=== PATIENT | male | born 1945 | race Caucasian/White ===

== ENCOUNTER → 2018-07-04 | Outpatient (CLI) | payer MEDICARE ==
[~2018-07-04] MED LIST: HYDACE5 PO; IBUP600 PO
[2018-07-04 17:17] LABS: Source, Urine Voided
[2018-07-04 18:44] LABS: Appearance, Urine Cloudy (Clear); Bilirubin, Urine Neg (Neg); Blood, Urine 5+ (Neg); Color, Urine Amber (P-Yellow); Glucose Qualitative, Urine Neg (Neg); Ketones, Urine 1+ (Neg); Leukocyte Esterase, Urine 2+ (Neg); Nitrite, Urine Pos (Neg); Protein, Urine 3+ (Neg); Urobilinogen, Urine NORM (Normal)
[2018-07-04 19:37] LABS: Red Blood Cells, Urine TNTC /hpf (0-2)
[2018-07-04 19:38] LABS: Bacteria Many /hpf; Squamous Epithelial Cells Not Seen /hpf (Few); Yeast/Fungi Urine Mod /hpf
== END | disposition home or self-care (01) ==
LOC: LAB 17:16 → LAB SHORT 17:16
PROVIDERS: Internal Medicine
DX: R82.90 Unspecified abnormal findings in urine (principal); R31.9 Hematuria, unspecified
CPT/HCPCS: 81001; 87086

== ENCOUNTER 2019-06-12 14:34 | Emergency (ER) | payer MEDICARE ==
[~2019-06-12] VITALS: Ht 177.8 cm; Wt 117.9 kg
[~2019-06-12 14:34] MED LIST changes: +HYDR1TAB94 PO; +Pyridium200 MG PO
[2019-06-12] MEDS ORDERED: ALLO300 PO (16:29)
[2019-06-12] MEDS ORDERED: CEPH500 PO (16:59)
[2019-06-12] MEDS ORDERED: Norco 5-325 Ta1 EACH PO (16:59)
== END 2019-06-12 18:20 | disposition home or self-care (01) ==
LOC: ER 14:34
DX: S62.521B Displaced fracture of distal phalanx of right thumb, initial encounter for open fracture (principal); S61.011A Laceration without foreign body of right thumb without damage to nail, initial encounter; M10.9 Gout, unspecified; W45.8XXA Other foreign body or object entering through skin, initial encounter
CPT/HCPCS: 12002; 73140; 90471; 90714; 99283-25

== ENCOUNTER → 2020-03-04 | Outpatient (CLI) | payer MEDICARE ==
[~2020-03-04] MED LIST changes: +ALLO300 PO; +CEPH500 PO; +Norco 5-325 Ta1 EACH PO
[2020-03-04 16:47] LABS: Hematocrit 27.7 % (37.0-53.0); Hemoglobin 8.5 g/dL (13.5-17.5); Mean Corpuscular HGB 29.7 pg (26.0-34.0); Mean Corpuscular HGB Conc 30.7 g/dL (31.5-36.5); Mean Corpuscular Volume 97 fL (80-100); Mean Platelet Volume 11.1 fL (9.1-12.4); Platelet Count 234 K/mm3 (150-400); RDW Coefficient Variation 15.8 % (11.7-14.2); RDW Standard Deviation 56.2 fL (35.1-46.3); Red Blood Cell Count 2.86 M/mm3 (4.30-5.90)
[2020-03-04 20:18] LABS: Bun/Creatinine Ratio 30.1 (12.0-20.0); Calcium, Blood 9.5 mg/dL (8.5-10.1); Creatinine, Blood 1.66 mg/dL (0.60-1.20); Potassium, Blood 4.4 mmol/L (3.5-5.5)
== END | disposition home or self-care (01) ==
LOC: LAB SHORT 15:44 → LAB HH 15:44
PROVIDERS: Urology
DX: C67.2 Malignant neoplasm of lateral wall of bladder (principal); E86.0 Dehydration; K63.2 Fistula of intestine
CPT/HCPCS: 80048; 85027

== ENCOUNTER 2020-03-22 13:08 | Inpatient (IN) | payer MEDICARE ==
[~2020-03-22] VITALS: Ht 177.8 cm; Wt 109.7 kg
[2020-03-22 14:33] LABS: BASOPHILS ABSOLUTE AUTO 0.02 K/mm3 (0.00-0.23); BASOPHILS PERCENT AUTO 0 % (0-2); EOSINOPHILS PERCENT AUTO 0 % (0-6); Hematocrit 28.2 % (37.0-53.0); Hemoglobin 8.7 g/dL (13.5-17.5); IMMATURE GRAN ABSOLUTE AUTO 0.09 K/mm3 (0.00-0.10); IMMATURE GRAN PERCENT AUTO 1 % (0-1); LYMPHOCYTES ABSOLUTE AUTO 0.76 K/mm3 (0.84-5.20); LYMPHOCYTES PERCENT AUTO 5 % (21-46); MONOCYTES ABSOLUTE AUTO 1.01 K/mm3 (0.16-1.47); MONOCYTES PERCENT AUTO 7 % (4-13); Mean Corpuscular HGB 28.8 pg (26.0-34.0); Mean Corpuscular HGB Conc 30.9 g/dL (31.5-36.5); Mean Corpuscular Volume 93 fL (80-100); Mean Platelet Volume 10.7 fL (9.1-12.4); NEUTROPHILS ABSOLUTE AUTO 12.74 K/mm3 (1.96-9.15); NEUTROPHILS PERCENT AUTO 87 % (41-73); Platelet Count 177 K/mm3 (150-400); RDW Coefficient Variation 16.5 % (11.7-14.2); RDW Standard Deviation 56.4 fL (35.1-46.3); Red Blood Cell Count 3.02 M/mm3 (4.30-5.90); White Blood Cell Count 14.62 K/mm3 (4.00-11.30)
[2020-03-22 14:49] LABS: Albumin, Blood 2.5 g/dL (3.4-5.0); Albumin/Globulin Ratio 0.4 (0.8-1.8); Bilirubin, Total 0.4 mg/dL (0.1-1.0); Creatinine, Blood 2.85 mg/dL (0.60-1.20); Globulin, Blood 6.1 g/dL (2.2-4.0); Potassium, Blood 4.7 mmol/L (3.5-5.5); Total Protein, Blood 8.6 g/dL (6.4-8.2)
[2020-03-22] MEDS ORDERED: ENOX100I SC (15:28)
[2020-03-22] MEDS ORDERED: Zofran4 MG PO (15:29)
[2020-03-22 16:52] LABS: Source, Urine Clean Catch
[2020-03-22 16:56] LABS: Appearance, Urine Hazy (Clear); Bilirubin, Urine Neg (Neg); Blood, Urine 4+ (Neg); Color, Urine Yellow (P-Yellow); Glucose Qualitative, Urine Neg (Neg); Ketones, Urine Neg (Neg); Leukocyte Esterase, Urine 3+ (Neg); Nitrite, Urine Neg (Neg); Protein, Urine 3+ (Neg); Urobilinogen, Urine NORM (Normal); pH, Urine 6.5 (5.0-8.0)
[2020-03-22 17:02] LABS: Bacteria Many /hpf; Squamous Epithelial Cells Not Seen /hpf (Few); White Blood Cells, Urine TNTC /hpf (0-5)
--- NOTE | 2020-03-22 18:46 | NUR ---
CALLED ED AND RECIEVED REPORT FROM ED RN MICHEL. TELEPHONE REPORT COMPLETED JUST PRIOR TO SHIFT CHANGE. WILL PASS REPORT ON TO NIGHT RN AT SHIFT CHANGE.
--- NOTE | 2020-03-23 04:50 | NUR ---
SHIFT SUMMARY: PT A NEW ADMIT FROM ER FOR SEPSIS. PT C/O SOB, NAUSEA AND COUGH X3 DAYS. PT REPORTS A RECENT DISCHARGE FROM [facility] FOR UROSTOMY PLACEMENT. MIDLINE SURGICAL SITE DRY AND WNL. UROSTOMY DRAINING YELLOW CLOUDY URINE WITH VISIBLE SEDIMENT IN TUBING. LR BOLUS X2 COMPLETE. PT NOW RECEIVING NS AT 125ML/HR PER ORDERS. ARMIDA PO AND DENIES N/V. LUNG SOUNDS DIMINISHED THROUGHOUT. O2 STABLE ON RA. OCCASIONAL DRY, UNPRODUCTIVE COUGH. FEBRILE THIS SHIFT WITH MAX TEMP BEING 101.1. PT GIVEN FAN AND ICE PACKS. BLANKET REMOVED. MOST RECENT TEMP 99.7. WILL CTM AND INFUSE FLUIDS PER ORDERS.
[2020-03-23 05:23] LABS: BASOPHILS ABSOLUTE AUTO 0.02 K/mm3 (0.00-0.23); BASOPHILS PERCENT AUTO 0 % (0-2); EOSINOPHILS PERCENT AUTO 0 % (0-6); Hematocrit 25.3 % (37.0-53.0); Hemoglobin 7.9 g/dL (13.5-17.5); IMMATURE GRAN ABSOLUTE AUTO 0.06 K/mm3 (0.00-0.10); IMMATURE GRAN PERCENT AUTO 0 % (0-1); LYMPHOCYTES ABSOLUTE AUTO 0.74 K/mm3 (0.84-5.20); LYMPHOCYTES PERCENT AUTO 5 % (21-46); MONOCYTES ABSOLUTE AUTO 0.84 K/mm3 (0.16-1.47); MONOCYTES PERCENT AUTO 6 % (4-13); Mean Corpuscular HGB 28.6 pg (26.0-34.0); Mean Corpuscular HGB Conc 31.2 g/dL (31.5-36.5); Mean Corpuscular Volume 92 fL (80-100); Mean Platelet Volume 11.2 fL (9.1-12.4); NEUTROPHILS ABSOLUTE AUTO 11.97 K/mm3 (1.96-9.15); NEUTROPHILS PERCENT AUTO 88 % (41-73); Platelet Count 150 K/mm3 (150-400); RDW Coefficient Variation 16.6 % (11.7-14.2); RDW Standard Deviation 55.9 fL (35.1-46.3); Red Blood Cell Count 2.76 M/mm3 (4.30-5.90); White Blood Cell Count 13.63 K/mm3 (4.00-11.30)
[2020-03-23 05:51] LABS: Albumin, Blood 2.2 g/dL (3.4-5.0); Albumin/Globulin Ratio 0.4 (0.8-1.8); Bilirubin, Total 0.4 mg/dL (0.1-1.0); Bun/Creatinine Ratio 14.1 (12.0-20.0); Calcium, Blood 8.3 mg/dL (8.5-10.1); Creatinine, Blood 3.05 mg/dL (0.60-1.20); Globulin, Blood 5.2 g/dL (2.2-4.0); Potassium, Blood 4.7 mmol/L (3.5-5.5); Total Protein, Blood 7.4 g/dL (6.4-8.2)
--- NOTE | 2020-03-23 13:46 | NUR ---
SHIFT SUMMARY PT RESTING QUIETLY AT START OF SHIFT, IVF'S INFUSING. PT ADMITTED FOR SEVERE SEPSIS R/T UTI/UROSTOMY. MIDLINE ABD INCISION WNL'S. PT WITH NAUSEA, SOB, AND COUGH X 3 DAYS. SR ON TELE, PER MX TECH. SP TX IN TO EVAL PT; DIET CHANGED TO SOFT. PT TOLERATED WELL. MEDS WHOLE W/H2O. DR WORKMAN IN TO SEE PT. DR WORKMAN CALLED PT'S UROLOGIST IN [place] TO DISCUSS PLAN OF CARE. PT CURRENTLY DOWN TO [place] FOR LUNG PERFUSION TEST. 2P MAX ASSIST TO TX TO [facility]. PT VERY WEAK AND UNSTEADY. NEEDING TO GET UP AND MOVE AROUND MORE. UROSTOMY TUBING DRAINING CLOUDY YELLOW URINE WITH HEAVY SEDIMENT. NO C/O PAIN. GOWN AND LINEN CHANGED. PT'S SISTER HERE TO VISIT TODAY. TO COME IN TOMORROW. CALL LT IN REACH.
--- NOTE | 2020-03-23 19:05 | NUR ---
ASSUMED CARE RECEIVED REPORT FROM SAMMIE VILLALPANDO. ASSUMED CARE OF PT. RESTING COMFORTABLY AT THIS TIME. NO S/S ACUTE DISTRESS NOTED, RESPS EVEN AND UNLABORED. PT DENIES NEEDS AT THIS TIME. CALL LIGHT AND POSSESSIONS IN REACH, BED IN LOW POSITION. WILL CONTINUE TO MONITOR.
--- NOTE | 2020-03-24 06:13 | NUR ---
SHIFT SUMMARY PT ASLEEP AT THIS TIME, NO S/S ACUTE DISTRESS NOTED. SLEPT T/O NIGHT. WAS MONITORED EVERY 1-2 HOURS WITH NEEDS MET. VS REVIEWED, PT SPIKED A TEMP OF 100.1 EARLY THIS AM, AFEBRILE AT THIS TIME. NO OTHER ACUTE EVENTS OR CHANGES IN CONDITION NOTED. DENIES NEEDS AT THIS TIME. CALL LIGHT, POSSESSIONS IN REACH, BED IN LOW POSITION. WILL CONTINUE TO MONITOR UNTIL DAY RN ASSUMES CARE.
[2020-03-24 10:25] LABS: BASOPHILS ABSOLUTE AUTO 0.01 K/mm3 (0.00-0.23); BASOPHILS PERCENT AUTO 0 % (0-2); EOSINOPHILS ABSOLUTE AUTO 0.06 K/mm3 (0.00-0.68); EOSINOPHILS PERCENT AUTO 1 % (0-6); Hematocrit 24.1 % (37.0-53.0); Hemoglobin 7.4 g/dL (13.5-17.5); IMMATURE GRAN ABSOLUTE AUTO 0.06 K/mm3 (0.00-0.10); IMMATURE GRAN PERCENT AUTO 1 % (0-1); LYMPHOCYTES ABSOLUTE AUTO 0.58 K/mm3 (0.84-5.20); LYMPHOCYTES PERCENT AUTO 6 % (21-46); MONOCYTES ABSOLUTE AUTO 0.61 K/mm3 (0.16-1.47); MONOCYTES PERCENT AUTO 6 % (4-13); Mean Corpuscular HGB 28.5 pg (26.0-34.0); Mean Corpuscular HGB Conc 30.7 g/dL (31.5-36.5); Mean Corpuscular Volume 93 fL (80-100); Mean Platelet Volume 10.8 fL (9.1-12.4); NEUTROPHILS ABSOLUTE AUTO 8.79 K/mm3 (1.96-9.15); NEUTROPHILS PERCENT AUTO 87 % (41-73); Platelet Count 139 K/mm3 (150-400); RDW Coefficient Variation 16.5 % (11.7-14.2); RDW Standard Deviation 56.3 fL (35.1-46.3); White Blood Cell Count 10.11 K/mm3 (4.00-11.30)
[2020-03-24 10:56] LABS: Albumin, Blood 1.8 g/dL (3.4-5.0); Albumin/Globulin Ratio 0.3 (0.8-1.8); Bilirubin, Total 0.2 mg/dL (0.1-1.0); Bun/Creatinine Ratio 12.6 (12.0-20.0); Calcium, Blood 8.1 mg/dL (8.5-10.1); Creatinine, Blood 3.65 mg/dL (0.60-1.20); Globulin, Blood 5.2 g/dL (2.2-4.0); Potassium, Blood 4.3 mmol/L (3.5-5.5)
--- NOTE | 2020-03-24 12:23 | NUR ---
PT IS A/O X4, PLEASANT/COOPERATIVE. STATE NO PAIN/DISCOMFORT. STATE WEAKNESS. DR WORKMAN IN TO SEE HIM THIS AM, ORDER LABS & PT/OT. CODE OFFICIAL IN FOR EVAL/TX, [facility] w FWW. DR WORKMAN REVIEW RESULTS OF LABS, CALLED PT'S UROLOGIST @ [facility]. PT WILL TRANSFER TO [facility] THIS AFTERNOON FOR UROLOGY PROCEDURE. UROSTOMY IS PATENT @ THIS TIME, TASH CLOUDY YELLOW URINE, PT BEING TREATED FOR UTI w IV ANTIBX. WBC 10.1, HE IS AFEBRILE. PT NOTIFY HIS OF PENDING TRANSFER, SHE BRING PERSONAL ITEMS TO HOSP, QUESTIONS ANSWERED.
--- NOTE | 2020-03-24 15:39 | NUR ---
DR WORKMAN PLACE ORDERS FOR [place] TRANSFER TO [facility]. REPORT CALLED TO [facility] SAMMIE BABIN, GOING TO RM [id number]. [employer] WILL ARRANGE TRANSPORTATION. PT & UPDATED, STATE SATISFACTION/APPRECIATION.
== END 2020-03-24 15:58 | disposition short-term general hospital (02) | DRG 698 ==
LOC: ER 13:08 → MEDS 18:06
PROVIDERS: Emergency Medicine; Internal Medicine; ADMIT Internal Medicine
DX: T83.518A Infection and inflammatory reaction due to other urinary catheter, initial encounter (principal); A41.9 Sepsis, unspecified organism; R65.20 Severe sepsis without septic shock; N39.0 Urinary tract infection, site not specified; N17.9 Acute kidney failure, unspecified; N13.30 Unspecified hydronephrosis; I82.409 Acute embolism and thrombosis of unspecified deep veins of unspecified lower extremity; Z66 Do not resuscitate; N18.30 Chronic kidney disease, stage 3 unspecified; M10.9 Gout, unspecified; F17.220 Nicotine dependence, chewing tobacco, uncomplicated; Z85.51 Personal history of malignant neoplasm of bladder
CPT/HCPCS: 36415; 71045; 74176; 78580; 80053; 81001; 83605; 83880; 85025; 87040; 87086; 87106; 92610; 93005; 93010; 96365; 97165; 97535; 99285-25; A9270; A9540; C9113; J0692; J0696; J1650; J2405; J7030; J7120; U0003

== ENCOUNTER → 2020-04-05 | Outpatient (CLI) | payer MEDICARE ==
[~2020-04-05] MED LIST changes: +ENOX100I SC; +Zofran4 MG PO
[2020-04-05 15:02] LABS: Bun/Creatinine Ratio 17.6 (12.0-20.0); Calcium, Blood 8.9 mg/dL (8.5-10.1); Creatinine, Blood 2.16 mg/dL (0.60-1.20); Potassium, Blood 4.9 mmol/L (3.5-5.5)
== END | disposition home or self-care (01) ==
LOC: LAB 14:37 → LAB SHORT 14:37
PROVIDERS: Physician Assistant
DX: Z48.3 Aftercare following surgery for neoplasm (principal); C67.2 Malignant neoplasm of lateral wall of bladder; I10 Essential (primary) hypertension; M10.9 Gout, unspecified
CPT/HCPCS: 80048

== ENCOUNTER → 2023-06-07 | Outpatient (CLI) | payer MEDICARE | LOC: LAB 07:24 → LAB SHORT 07:24 | DX: N39.0 Urinary tract infection, site not specified (principal) | CPT/HCPCS: 87077; 87086; 87186 ==

== ENCOUNTER 2024-03-31 15:08 | Emergency (ER) | payer MEDICARE ==
[~2024-03-31] VITALS: Ht 177.8 cm; Wt 117.9 kg
[2024-03-31] MEDS ORDERED: Tranexamic Acid 100 ML IV ONE (15:40)
[2024-03-31 16:02] LABS: BASOPHILS ABSOLUTE AUTO 0.06 K/mm3 (0.00-0.23); BASOPHILS PERCENT AUTO 1 % (0-2); EOSINOPHILS ABSOLUTE AUTO 0.09 K/mm3 (0.00-0.68); EOSINOPHILS PERCENT AUTO 1 % (0-6); Hematocrit 39.5 % (37.0-53.0); Hemoglobin 13.4 g/dL (13.5-17.5); IMMATURE GRAN ABSOLUTE AUTO 0.05 K/mm3 (0.00-0.10); IMMATURE GRAN PERCENT AUTO 0 % (0-1); LYMPHOCYTES ABSOLUTE AUTO 2.24 K/mm3 (0.84-5.20); LYMPHOCYTES PERCENT AUTO 18 % (21-46); MONOCYTES ABSOLUTE AUTO 0.58 K/mm3 (0.16-1.47); MONOCYTES PERCENT AUTO 5 % (4-13); Mean Corpuscular HGB Conc 33.9 g/dL (31.5-36.5); Mean Corpuscular Volume 94 fL (80-100); Mean Platelet Volume 10.8 fL (9.1-12.4); NEUTROPHILS ABSOLUTE AUTO 9.69 K/mm3 (1.96-9.15); NEUTROPHILS PERCENT AUTO 76 % (41-73); Platelet Count 134 K/mm3 (150-400); RDW Coefficient Variation 14.3 % (11.7-14.2); RDW Standard Deviation 49.1 fL (35.1-46.3); Red Blood Cell Count 4.19 M/mm3 (4.30-5.90); White Blood Cell Count 12.71 K/mm3 (4.00-11.30)
[2024-03-31 16:22] LABS: Albumin, Blood 3.3 g/dL (3.4-5.0); Albumin/Globulin Ratio 0.8 (0.8-1.8); Bilirubin, Total 0.3 mg/dL (0.1-1.0); Bun/Creatinine Ratio 18.5 (12.0-20.0); Calcium, Blood 9.4 mg/dL (8.5-10.1); Globulin, Blood 4.1 g/dL (2.2-4.0); Potassium, Blood 3.8 mmol/L (3.5-5.5); Total Protein, Blood 7.4 g/dL (6.4-8.2)
[2024-03-31 16:45] VITALS: BP 152/83
== END 2024-03-31 17:23 | disposition home or self-care (01) ==
LOC: ER 15:08
PROVIDERS: Emergency Medicine
DX: K94.11 Enterostomy hemorrhage (principal); Y84.8 Other medical procedures as the cause of abnormal reaction of the patient, or of later complication, without mention of misadventure at the time of the procedure; Z79.899 Other long term (current) drug therapy
CPT/HCPCS: 80053; 85025; 96374; 99284-25

== ENCOUNTER 2024-04-02 11:11 | Emergency (ER) | payer MEDICARE ==
[~2024-04-02] VITALS: Ht 177.8 cm; Wt 117.9 kg
[2024-04-02 11:52] LABS: BASOPHILS ABSOLUTE AUTO 0.06 K/mm3 (0.00-0.23); BASOPHILS PERCENT AUTO 1 % (0-2); EOSINOPHILS ABSOLUTE AUTO 0.06 K/mm3 (0.00-0.68); EOSINOPHILS PERCENT AUTO 1 % (0-6); Hematocrit 34.3 % (37.0-53.0); Hemoglobin 11.8 g/dL (13.5-17.5); IMMATURE GRAN ABSOLUTE AUTO 0.06 K/mm3 (0.00-0.10); IMMATURE GRAN PERCENT AUTO 1 % (0-1); LYMPHOCYTES ABSOLUTE AUTO 1.75 K/mm3 (0.84-5.20); LYMPHOCYTES PERCENT AUTO 15 % (21-46); MONOCYTES ABSOLUTE AUTO 0.48 K/mm3 (0.16-1.47); MONOCYTES PERCENT AUTO 4 % (4-13); Mean Corpuscular HGB 32.2 pg (26.0-34.0); Mean Corpuscular HGB Conc 34.4 g/dL (31.5-36.5); Mean Corpuscular Volume 94 fL (80-100); Mean Platelet Volume 10.8 fL (9.1-12.4); NEUTROPHILS ABSOLUTE AUTO 8.95 K/mm3 (1.96-9.15); NEUTROPHILS PERCENT AUTO 79 % (41-73); Platelet Count 132 K/mm3 (150-400); RDW Coefficient Variation 14.5 % (11.7-14.2); RDW Standard Deviation 49.7 fL (35.1-46.3); Red Blood Cell Count 3.67 M/mm3 (4.30-5.90); White Blood Cell Count 11.36 K/mm3 (4.00-11.30)
[2024-04-02 12:15] LABS: Albumin, Blood 3.3 g/dL (3.4-5.0); Albumin/Globulin Ratio 0.9 (0.8-1.8); Bilirubin, Total 0.3 mg/dL (0.1-1.0); Bun/Creatinine Ratio 17.8 (12.0-20.0); Calcium, Blood 9.2 mg/dL (8.5-10.1); Creatinine, Blood 2.25 mg/dL (0.60-1.20); Globulin, Blood 3.7 g/dL (2.2-4.0); Potassium, Blood 4.2 mmol/L (3.5-5.5)
[2024-04-02 15:06] VITALS: BP 169/77
== END 2024-04-02 16:19 | disposition home or self-care (01) ==
LOC: ER 11:11
PROVIDERS: Physician Assistant
DX: T83.83XA Hemorrhage due to genitourinary prosthetic devices, implants and grafts, initial encounter (principal); N99.522 Malfunction of incontinent external stoma of urinary tract; Z79.899 Other long term (current) drug therapy
CPT/HCPCS: 80053; 85025; 99283

== ENCOUNTER 2024-09-23 06:09 | Day surgery (SDC) | payer MEDICARE ==
[~2024-09-23] VITALS: Ht 177.8 cm; Wt 123.3 kg
[~2024-09-23 06:09] MED LIST changes: +Balanced Salt Epinephrine Irrigation Solution 500 mL IR SCH; +Diazepam 5 MG Tab PO PRN; +Diazepam 5 MG Tab PO SCH; +Lidocaine HCl/Pf 1% 5 ML VIAL XX SCH; +Moxifloxacin HCL 0.5 MG/0.1 ML 0.4MLSYR RIGHTEYE SCH; +Ondansetron 4 MG SoluTab MM PRN; +PHENYLEPHRINE\\TROPICAMIDE\\TETRACAINE OPHTHALMIC DILATING SOLN RIGHTEYE PRN; +Povidone-Iodine 450 DROP/30 ML Solution ONE; +Povidone-Iodine 450 DROP/30 ML Solution RIGHTEYE SCH; +Tetracaine HCl/Pf 0.5% Opth Soln 4 ml ONE
[2024-09-23] MEDS ORDERED: Diazepam 10 MG Tab ONE (06:11)
[2024-09-23] MEDS ORDERED: ALLOPURINOL100 M1 PO (06:32)
[2024-09-23] MEDS ORDERED: Lidocaine HCl/Pf 1% 5 ML VIAL ONE (06:41)
--- NOTE | 2024-09-23 07:10 | NUR ---
09/23/24 0710 ARIANE RODRÍGUEZ PT O2 DROPPED 90%-92% RA NC PLACED O2 2L PER DR ORDERS. O2 INCREASED TO 95-97%
--- NOTE | 2024-09-23 07:37 | NUR ---
09/23/24 0737 Abby Peterson AFTER DISCUSSION WITH ANESTHESIA, DR. PARKER, AND CHARGE NURSES IT WAS DECIDED TO PROCEED WITH TODAY'S PROCEDURE AFTER THE PATIENT HAD ORANGE JUICE AT 0400 AND CHEWING TABACCO AT 0500.
[2024-09-23 08:14] VITALS: BP 137/77
--- NOTE | 2024-09-23 08:16 | NUR ---
09/23/[address] AT BEDSIDE
== END 2024-09-23 08:28 | disposition home or self-care (01) ==
LOC: ORSCSDS 06:09
PROVIDERS: Student in an Organized Health Care Education/Training Program
PROC: 08RJ3JZ Replacement of Right Lens with Synthetic Substitute, Percutaneous Approach (ICD-10-PCS; principal; 2024-09-23 07:30)
DX: H25.813 Combined forms of age-related cataract, bilateral (principal); Z85.51 Personal history of malignant neoplasm of bladder; I10 Essential (primary) hypertension; Z79.899 Other long term (current) drug therapy
CPT/HCPCS: A9270; J2003; V2632

== ENCOUNTER 2024-09-30 07:02 | Day surgery (SDC) | payer MEDICARE ==
[~2024-09-30] VITALS: Ht 177.8 cm; Wt 122.7 kg
[~2024-09-30 07:02] MED LIST changes: +ALLOPURINOL100 M1 PO; +Moxifloxacin HCL 0.5 MG/0.1 ML 0.4MLSYR LEFTEYE SCH; -Moxifloxacin HCL 0.5 MG/0.1 ML 0.4MLSYR RIGHTEYE SCH; +PHENYLEPHRINE\\TROPICAMIDE\\TETRACAINE OPHTHALMIC DILATING SOLN LEFTEYE PRN; -PHENYLEPHRINE\\TROPICAMIDE\\TETRACAINE OPHTHALMIC DILATING SOLN RIGHTEYE PRN; +Povidone-Iodine 450 DROP/30 ML Solution LEFTEYE SCH; -Povidone-Iodine 450 DROP/30 ML Solution RIGHTEYE SCH
[2024-09-30] MEDS ORDERED: Diazepam 10 MG Tab ONE (07:32)
--- NOTE | 2024-09-30 07:43 | NUR ---
09/30/24 0743 Ángela Blevins CALL LIGHT WITHIN REACH. TETRACAINE IN LEFT EYE AT 0738 AND PLEDGETT IN AT 0739. PT ON CONTINOUS PULSE OXIMETER.
--- NOTE | 2024-09-30 08:18 | NUR ---
09/30/24 0818 Sara Hernandez VITALS AT 0817 BP:131/66 P:78 O2:97% 10 LITERS OF BLOW BY OXYGEN
[2024-09-30 08:52] VITALS: BP 139/79
== END 2024-09-30 08:48 | disposition home or self-care (01) ==
LOC: ORSCSDS 07:02
PROVIDERS: Student in an Organized Health Care Education/Training Program
PROC: 08RK3JZ Replacement of Left Lens with Synthetic Substitute, Percutaneous Approach (ICD-10-PCS; principal; 2024-09-30 08:30)
DX: H25.12 Age-related nuclear cataract, left eye (principal); Z96.1 Presence of intraocular lens; I10 Essential (primary) hypertension; Z79.899 Other long term (current) drug therapy; Z85.51 Personal history of malignant neoplasm of bladder
CPT/HCPCS: A9270; V2632

== ENCOUNTER 2024-10-04 03:51 | Emergency (ER) | payer MEDICARE ==
[~2024-10-04] VITALS: Ht 188 cm; Wt 121.6 kg
[~2024-10-04 03:51] MED LIST changes: -Balanced Salt Epinephrine Irrigation Solution 500 mL IR SCH; -Diazepam 5 MG Tab PO PRN; -Diazepam 5 MG Tab PO SCH; -Lidocaine HCl/Pf 1% 5 ML VIAL XX SCH; -Moxifloxacin HCL 0.5 MG/0.1 ML 0.4MLSYR LEFTEYE SCH; -Ondansetron 4 MG SoluTab MM PRN; -PHENYLEPHRINE\\TROPICAMIDE\\TETRACAINE OPHTHALMIC DILATING SOLN LEFTEYE PRN; -Povidone-Iodine 450 DROP/30 ML Solution LEFTEYE SCH; -Povidone-Iodine 450 DROP/30 ML Solution ONE; -Tetracaine HCl/Pf 0.5% Opth Soln 4 ml ONE
[2024-10-04 04:42] LABS: Albumin, Blood 3.3 g/dL (3.4-5.0); Albumin/Globulin Ratio 0.8 (0.8-1.8); Bilirubin, Total 0.3 mg/dL (0.1-1.0); Bun/Creatinine Ratio 17.4 (12.0-20.0); Calcium, Blood 8.6 mg/dL (8.5-10.1); Creatinine, Blood 1.95 mg/dL (0.60-1.20); Globulin, Blood 4.3 g/dL (2.2-4.0); Potassium, Blood 4.2 mmol/L (3.5-5.5); Total Protein, Blood 7.6 g/dL (6.4-8.2)
[2024-10-04 04:50] LABS: BASOPHILS ABSOLUTE AUTO 0.04 K/mm3 (0.00-0.23); BASOPHILS PERCENT AUTO 0 % (0-2); EOSINOPHILS ABSOLUTE AUTO 0.04 K/mm3 (0.00-0.68); EOSINOPHILS PERCENT AUTO 0 % (0-6); Hematocrit 39.6 % (37.0-53.0); Hemoglobin 13.1 g/dL (13.5-17.5); IMMATURE GRAN ABSOLUTE AUTO 0.07 K/mm3 (0.00-0.10); IMMATURE GRAN PERCENT AUTO 0 % (0-1); LYMPHOCYTES ABSOLUTE AUTO 0.89 K/mm3 (0.84-5.20); LYMPHOCYTES PERCENT AUTO 6 % (21-46); MONOCYTES ABSOLUTE AUTO 0.72 K/mm3 (0.16-1.47); MONOCYTES PERCENT AUTO 5 % (4-13); Mean Corpuscular HGB 30.8 pg (26.0-34.0); Mean Corpuscular HGB Conc 33.1 g/dL (31.5-36.5); Mean Corpuscular Volume 93 fL (80-100); NEUTROPHILS ABSOLUTE AUTO 14.04 K/mm3 (1.96-9.15); NEUTROPHILS PERCENT AUTO 89 % (41-73); RDW Coefficient Variation 15.7 % (11.7-14.2); Red Blood Cell Count 4.25 M/mm3 (4.30-5.90)
[2024-10-04 04:51] LABS: Platelet Count 114 K/mm3 (150-400)
[2024-10-04 05:46] VITALS: BP 158/72
[2024-10-04] MEDS ORDERED: CEFD300 PO (07:39)
== END 2024-10-04 05:50 | disposition home or self-care (01) ==
LOC: ER 03:51
PROVIDERS: Emergency Medicine
DX: R07.2 Precordial pain (principal); D72.829 Elevated white blood cell count, unspecified; N18.30 Chronic kidney disease, stage 3 unspecified; R07.89 Other chest pain; N39.0 Urinary tract infection, site not specified; Z79.899 Other long term (current) drug therapy; Z91.018 Allergy to other foods
CPT/HCPCS: 71045; 80053; 81001; 83605; 84484; 85025; 87086; 93005; 93010; 96372; 99283; 99285-25; J0696

== ENCOUNTER 2024-10-04 06:18 | Emergency (ER) | payer MEDICARE ==
[~2024-10-04] VITALS: Ht 177.8 cm; Wt 117.9 kg
[2024-10-04 06:40] LABS: Source, Urine Urostomy Bag
[2024-10-04 06:58] LABS: Appearance, Urine Hazy (Clear); Bilirubin, Urine Neg (Neg); Blood, Urine 5+ (Neg); Color, Urine Yellow (P-Yellow); Glucose Qualitative, Urine Neg (Neg); Ketones, Urine Neg (Neg); Leukocyte Esterase, Urine 3+ (Neg); Nitrite, Urine Neg (Neg); Protein, Urine 3+ (Neg); Specific Gravity, Urine 1.015 (1.003-1.022); Urobilinogen, Urine NORM (Normal)
[2024-10-04 07:10] LABS: Bacteria Mod /hpf; Red Blood Cells, Urine TNTC /hpf (0-2); Squamous Epithelial Cells Few /hpf (Few); White Blood Cells, Urine TNTC /hpf (0-5)
[2024-10-04 07:30] VITALS: BP 154/78
[2024-10-04] MEDS ORDERED: CefTRIAXone Sodium 1,000 MG in NS 100 ML IV ONE (07:30)
[2024-10-04] MEDS ORDERED: CEFD300 PO (07:39)
[2024-10-04] MEDS ORDERED: CefTRIAXone 1000 MG Vial IM ONE (08:15)
== END 2024-10-04 08:39 | disposition home or self-care (01) ==
LOC: ER 06:18
PROVIDERS: Emergency Medicine
DX: R07.89 Other chest pain (principal); N39.0 Urinary tract infection, site not specified; Z79.899 Other long term (current) drug therapy; Z91.018 Allergy to other foods
CPT/HCPCS: 81001; 83605; 84484; 87086; 96372; 99283; J0696

== ENCOUNTER 2024-12-23 19:42 | Emergency (ER) | payer MEDICARE ==
[~2024-12-23] VITALS: Ht 177.8 cm; Wt 117.9 kg
[~2024-12-23 19:42] MED LIST changes: +CEFD300 PO
[2024-12-23 20:17] LABS: BASOPHILS ABSOLUTE AUTO 0.04 K/mm3 (0.00-0.23); BASOPHILS PERCENT AUTO 0 % (0-2); EOSINOPHILS ABSOLUTE AUTO 0.09 K/mm3 (0.00-0.68); EOSINOPHILS PERCENT AUTO 1 % (0-6); Hematocrit 38.8 % (37.0-53.0); Hemoglobin 12.8 g/dL (13.5-17.5); IMMATURE GRAN ABSOLUTE AUTO 0.04 K/mm3 (0.00-0.10); IMMATURE GRAN PERCENT AUTO 0 % (0-1); LYMPHOCYTES ABSOLUTE AUTO 2.35 K/mm3 (0.84-5.20); LYMPHOCYTES PERCENT AUTO 19 % (21-46); MONOCYTES ABSOLUTE AUTO 0.66 K/mm3 (0.16-1.47); MONOCYTES PERCENT AUTO 5 % (4-13); Mean Corpuscular HGB Conc 33.0 g/dL (31.5-36.5); Mean Corpuscular Volume 94 fL (80-100); NEUTROPHILS ABSOLUTE AUTO 8.97 K/mm3 (1.96-9.15); NEUTROPHILS PERCENT AUTO 74 % (41-73); NRBC ABSOLUTE 0.00 K/mm3 (0.00-0.02); NRBC Auto 0.0 /100 WBC (0.0-0.2); Platelet Count 177 K/mm3 (150-400); RDW Coefficient Variation 15.0 % (11.7-14.2); RDW Standard Deviation 51.8 fL (35.1-46.3)
[2024-12-23 20:40] LABS: Alanine Aminotransfer (ALT/SGP 15.0 U/L (12-78); Albumin, Blood 3.1 g/dL (3.4-5.0); Albumin/Globulin Ratio 0.8 (0.8-1.8); Anion Gap 10.0 mmol/L (3-11); Aspartate Aminotrans (AST/SGOT 14.0 U/L (12-37); Bilirubin, Total 0.3 mg/dL (0.1-1.0); Blood Urea Nitrogen 31.0 mg/dL (8-24); CO2, Blood 24.0 mmol/L (21-32); Calcium, Blood 8.8 mg/dL (8.5-10.1); Chloride, Blood 109.0 mmol/L (98-108); Creatinine, Blood 2.07 mg/dL (0.60-1.20); Globulin, Blood 4.0 g/dL (2.2-4.0); Glucose, Blood 138.0 mg/dL (70-99); Potassium, Blood 3.9 mmol/L (3.5-5.5); Sodium, Blood 139.0 mmol/L (136-145); Total Protein, Blood 7.1 g/dL (6.4-8.2)
[2024-12-23] MEDS ORDERED: NS 1,000 ML IV SCH (22:30)
[2024-12-23] MEDS ORDERED: NS 1,000 ML IV ONE (22:30)
[2024-12-23 23:22] LABS: BASOPHILS ABSOLUTE AUTO 0.04 K/mm3 (0.00-0.23); BASOPHILS PERCENT AUTO 0 % (0-2); EOSINOPHILS ABSOLUTE AUTO 0.03 K/mm3 (0.00-0.68); EOSINOPHILS PERCENT AUTO 0 % (0-6); Hematocrit 33.5 % (37.0-53.0); Hemoglobin 10.8 g/dL (13.5-17.5); IMMATURE GRAN ABSOLUTE AUTO 0.06 K/mm3 (0.00-0.10); IMMATURE GRAN PERCENT AUTO 0 % (0-1); LYMPHOCYTES ABSOLUTE AUTO 1.43 K/mm3 (0.84-5.20); LYMPHOCYTES PERCENT AUTO 9 % (21-46); MONOCYTES ABSOLUTE AUTO 0.58 K/mm3 (0.16-1.47); MONOCYTES PERCENT AUTO 4 % (4-13); Mean Corpuscular HGB Conc 32.2 g/dL (31.5-36.5); Mean Corpuscular Volume 97 fL (80-100); NEUTROPHILS ABSOLUTE AUTO 14.04 K/mm3 (1.96-9.15); NEUTROPHILS PERCENT AUTO 87 % (41-73); NRBC ABSOLUTE 0.00 K/mm3 (0.00-0.02); NRBC Auto 0.0 /100 WBC (0.0-0.2); Platelet Count 132 K/mm3 (150-400); RDW Coefficient Variation 15.1 % (11.7-14.2); RDW Standard Deviation 53.6 fL (35.1-46.3)
[2024-12-23] MEDS ORDERED: Tranexamic Acid 100 ML IV ONE (23:30)
[2024-12-23 23:46] LABS: Calcium, Ionized (POC) 1.24 mmol/L (1.10-1.46); Chloride (POC) 105 mmol/L (98-108); Creatinine (POC) 1.0 mg/dL (0.8-1.3); Glucose (ISTAT POC) 92 mg/dL (70-99); Hematocrit (POC) 44.0 % (41.0-53.0); Hemoglobin (POC) 15.0 g/dL (13.5-17.5); Potassium (POC) 3.7 mmol/L (3.5-5.5); Sodium (POC) 141 mmol/L (135-148); Total CO2 (POC) 25 mmol/L (21-32)
[2024-12-24 01:13] LABS: Hematocrit 35.5 % (37.0-53.0); Hemoglobin 11.4 g/dL (13.5-17.5)
[2024-12-24 02:15] VITALS: BP 108/77
== END 2024-12-24 02:30 | disposition short-term general hospital (02) ==
LOC: ER 19:42
PROVIDERS: Emergency Medicine
DX: N99.520 Hemorrhage of incontinent external stoma of urinary tract (principal); D62 Acute posthemorrhagic anemia; N18.30 Chronic kidney disease, stage 3 unspecified; Z91.018 Allergy to other foods; Z79.899 Other long term (current) drug therapy
CPT/HCPCS: 36430; 74177; 80047; 80053; 85014; 85018; 85025; 86850; 86900; 86901; 86920; 93005; 93010; 96361; 96374-59; 99284-25; J7030; P9016; Q9967

== ENCOUNTER → 2025-02-23 | Outpatient (CLI) | payer MEDICARE ==
[2025-02-23 14:31] LABS: BASOPHILS ABSOLUTE AUTO 0.03 K/mm3 (0.00-0.23); BASOPHILS PERCENT AUTO 0 % (0-2); EOSINOPHILS ABSOLUTE AUTO 0.02 K/mm3 (0.00-0.68); EOSINOPHILS PERCENT AUTO 0 % (0-6); Hematocrit 41.6 % (37.0-53.0); Hemoglobin 13.7 g/dL (13.5-17.5); IMMATURE GRAN ABSOLUTE AUTO 0.05 K/mm3 (0.00-0.10); IMMATURE GRAN PERCENT AUTO 0 % (0-1); LYMPHOCYTES ABSOLUTE AUTO 1.23 K/mm3 (0.84-5.20); LYMPHOCYTES PERCENT AUTO 9 % (21-46); MONOCYTES ABSOLUTE AUTO 0.94 K/mm3 (0.16-1.47); MONOCYTES PERCENT AUTO 7 % (4-13); Mean Corpuscular HGB Conc 32.9 g/dL (31.5-36.5); Mean Corpuscular Volume 89 fL (80-100); NEUTROPHILS ABSOLUTE AUTO 11.79 K/mm3 (1.96-9.15); NEUTROPHILS PERCENT AUTO 84 % (41-73); NRBC ABSOLUTE 0.00 K/mm3 (0.00-0.02); NRBC Auto 0.0 /100 WBC (0.0-0.2); Platelet Count 189 K/mm3 (150-400); RDW Coefficient Variation 16.0 % (11.7-14.2); RDW Standard Deviation 51.7 fL (35.1-46.3)
[2025-02-23 14:41] LABS: Alanine Aminotransfer (ALT/SGP 17.0 U/L (12-78); Albumin, Blood 3.0 g/dL (3.4-5.0); Albumin/Globulin Ratio 0.7 (0.8-1.8); Anion Gap 15.0 mmol/L (3-11); Aspartate Aminotrans (AST/SGOT 17.0 U/L (12-37); Bilirubin, Total 0.6 mg/dL (0.1-1.0); Blood Urea Nitrogen 40.0 mg/dL (8-24); CO2, Blood 26.0 mmol/L (21-32); Calcium, Blood 8.9 mg/dL (8.5-10.1); Chloride, Blood 105.0 mmol/L (98-108); Creatinine, Blood 2.47 mg/dL (0.60-1.20); Globulin, Blood 4.2 g/dL (2.2-4.0); Glucose, Blood 130.0 mg/dL (70-99); Potassium, Blood 4.7 mmol/L (3.5-5.5); Sodium, Blood 141.0 mmol/L (136-145); Total Protein, Blood 7.2 g/dL (6.4-8.2)
== END ==
LOC: LAB 14:26 → LAB SHORT 14:26
PROVIDERS: Physician Assistant
DX: R10.9 Unspecified abdominal pain (principal)
CPT/HCPCS: 80053; 83690; 85025

== ENCOUNTER 2025-05-13 20:58 | Emergency (ER) | payer MEDICARE ==
[~2025-05-13] VITALS: Ht 177.8 cm; Wt 117.9 kg
[2025-05-13] MEDS ORDERED: Ondansetron HCl 2 MG / ML 2ML Vial IV ONE (21:40)
[2025-05-13] MEDS ORDERED: Tranexamic Acid 100 ML IV ONE (21:40)
[2025-05-13 21:45] LABS: BASOPHILS ABSOLUTE AUTO 0.05 K/mm3 (0.00-0.23); BASOPHILS PERCENT AUTO 0 % (0-2); EOSINOPHILS ABSOLUTE AUTO 0.10 K/mm3 (0.00-0.68); EOSINOPHILS PERCENT AUTO 1 % (0-6); Hematocrit 35.2 % (37.0-53.0); Hemoglobin 11.7 g/dL (13.5-17.5); IMMATURE GRAN ABSOLUTE AUTO 0.06 K/mm3 (0.00-0.10); IMMATURE GRAN PERCENT AUTO 1 % (0-1); LYMPHOCYTES ABSOLUTE AUTO 2.31 K/mm3 (0.84-5.20); LYMPHOCYTES PERCENT AUTO 20 % (21-46); MONOCYTES ABSOLUTE AUTO 0.66 K/mm3 (0.16-1.47); MONOCYTES PERCENT AUTO 6 % (4-13); Mean Corpuscular HGB Conc 33.2 g/dL (31.5-36.5); Mean Corpuscular Volume 90 fL (80-100); NEUTROPHILS ABSOLUTE AUTO 8.47 K/mm3 (1.96-9.15); NEUTROPHILS PERCENT AUTO 73 % (41-73); NRBC ABSOLUTE 0.00 K/mm3 (0.00-0.02); NRBC Auto 0.0 /100 WBC (0.0-0.2); Platelet Count 168 K/mm3 (150-400); RDW Coefficient Variation 15.5 % (11.7-14.2); RDW Standard Deviation 51.3 fL (35.1-46.3)
[2025-05-13] MEDS ORDERED: Tranexamic Acid 100 ML IV SCH (21:45)
[2025-05-13 22:00] LABS: Alanine Aminotransfer (ALT/SGP 18.0 U/L (12-78); Albumin, Blood 3.0 g/dL (3.4-5.0); Albumin/Globulin Ratio 0.7 (0.8-1.8); Anion Gap 10.0 mmol/L (3-11); Aspartate Aminotrans (AST/SGOT 17.0 U/L (12-37); Bilirubin, Total 0.2 mg/dL (0.1-1.0); Blood Urea Nitrogen 38.0 mg/dL (8-24); CO2, Blood 24.0 mmol/L (21-32); Calcium, Blood 9.0 mg/dL (8.5-10.1); Chloride, Blood 108.0 mmol/L (98-108); Creatinine, Blood 1.98 mg/dL (0.60-1.20); Globulin, Blood 4.6 g/dL (2.2-4.0); Glucose, Blood 104.0 mg/dL (70-99); Potassium, Blood 4.3 mmol/L (3.5-5.5); Sodium, Blood 138.0 mmol/L (136-145); Total Protein, Blood 7.6 g/dL (6.4-8.2)
[2025-05-13 22:51] VITALS: BP 158/94
== END 2025-05-13 22:50 | disposition home or self-care (01) ==
LOC: ER 20:58
PROVIDERS: Emergency Medicine
DX: N99.520 Hemorrhage of incontinent external stoma of urinary tract (principal); M10.9 Gout, unspecified; N18.30 Chronic kidney disease, stage 3 unspecified; Z85.51 Personal history of malignant neoplasm of bladder; Z90.6 Acquired absence of other parts of urinary tract; Z86.711 Personal history of pulmonary embolism; Z86.718 Personal history of other venous thrombosis and embolism; Z91.018 Allergy to other foods; Z79.899 Other long term (current) drug therapy
CPT/HCPCS: 80053; 85025; A9270; J2405